=== PATIENT | female | born 1990 | race African-American/Black ===

== ENCOUNTER 2016-12-27 10:38 | Emergency (ER) | payer SELFPAY ==
[2016-12-27 10:43] VITALS: BP 123/86; BMI 23.3
[2016-12-27] MEDS ORDERED: NORCO 5/325 MG TAB PO ONE (10:52)
[2016-12-27] MEDS ORDERED: NORCO 5/325 MG TAB ONE (10:53)
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
== END 2016-12-27 11:25 | disposition home or self-care (01) ==
LOC: ER 10:38
DX: T25.021A Burn of unspecified degree of right foot, initial encounter (principal); X10.2XXA Contact with fats and cooking oils, initial encounter
CPT/HCPCS: 99282